=== PATIENT | male | born 1975 | race Caucasian/White ===

== ENCOUNTER 2018-04-01 14:29 | Emergency (ER) | payer OTHER ==
[~2018-04-01] VITALS: Ht 180.3 cm; Wt 82.1 kg
[2018-04-01 14:31] VITALS: Ht 180.3 cm; Wt 82.1 kg
[2018-04-01 17:19] VITALS: BP 114/80
== END 2018-04-01 17:19 | disposition home or self-care (01) ==
LOC: ED 14:29
DX: L02.511 Cutaneous abscess of right hand (principal); L03.011 Cellulitis of right finger; M65.88 Other synovitis and tenosynovitis, other site
CPT/HCPCS: 90715; J0696; J2001; Q0092

== ENCOUNTER 2019-09-21 22:03 | Emergency (ER) | payer SELFPAY ==
[~2019-09-21] VITALS: Ht 180.3 cm; Wt 89.8 kg
[2019-09-21 22:32] VITALS: Ht 180.3 cm; Wt 89.8 kg
[2019-09-22 00:05] LABS: microscopic required? NO
[2019-09-22 00:16] LABS: urine erythrocyte NEGATIVE (NEGATIVE)
[2019-09-22 00:18] LABS: BASOPHIL % 0.5 % (0-2); PLATELET COUNT 352 x10^3mcL (130-400); RED CELL DISTRIBUTION WIDTH 13.4 % (11.5-14.5)
[2019-09-22 00:37] LABS: CALCIUM 8.3 mg/dL (8.5-10.1); CARBON DIOXIDE 28.7 mmol/L (21-32); CHLORIDE SERUM 103 mmol/L (98-107); CREATININE SERUM 0.8 mg/dL (0.7-1.3); GFR1 > 60 mL/min; GLUCOSE SERUM 88 mg/dL (74-106); POTASSIUM SERUM 3.6 mmol/L (3.5-5.1); SODIUM SERUM 139 mmol/L (136-145)
[2019-09-22 00:46] LABS: ALBUMIN 3.6 g/dL (3.4-5.0); ALKALINE PHOSPHATASE 92 U/L (46-116); ALT/SGPT 40 U/L (16-63); AST/SGOT 12 U/L (15-37); BILIRUBIN TOTAL 0.26 mg/dL (0.20-1.00); T4(THYROXINE) 5.7 ug/dL (4.7-13.3); TOTAL PROTEIN, SERUM 7.3 g/dL (6.4-8.2)
[2019-09-22 02:15] VITALS: BP 148/101
== END 2019-09-22 02:19 | disposition home or self-care (01) ==
LOC: ED 22:03
PROVIDERS: Emergency Medicine
DX: R60.0 Localized edema (principal); Z98.890 Other specified postprocedural states
CPT/HCPCS: 36415; Q0092

== ENCOUNTER 2020-07-16 03:27 | Emergency (ER) | payer OTHER ==
[~2020-07-16] VITALS: Ht 182.9 cm; Wt 89.8 kg
[2020-07-16 03:35] VITALS: Ht 182.9 cm; Wt 89.8 kg
[2020-07-16 03:58] VITALS: BP 159/101
== END 2020-07-16 03:53 | disposition home or self-care (01) ==
LOC: ED 03:27
DX: K04.7 Periapical abscess without sinus (principal); K05.10 Chronic gingivitis, plaque induced; F17.210 Nicotine dependence, cigarettes, uncomplicated
CPT/HCPCS: 99406

== ENCOUNTER 2020-07-16 14:09 | Emergency (ER) | payer OTHER ==
[2020-07-16 14:16] VITALS: BP 158/96; Ht 182.9 cm
== END 2020-07-16 14:55 | disposition home or self-care (01) ==
LOC: ED 14:09
DX: K04.7 Periapical abscess without sinus (principal); F17.210 Nicotine dependence, cigarettes, uncomplicated
CPT/HCPCS: 99406; J0696